=== PATIENT | female | born 1955 | race Two or more races ===

== ENCOUNTER 2025-09-13 18:33 | Emergency (ER) | payer MEDICARE, MEDICAID, SELFPAY ==
[2025-09-13 18:34] VITALS: BMI 35.2
--- NOTE | 2025-09-13 19:04 | EKG_ITS ---
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
[2025-09-13 19:08] VITALS: BP 226/112; BP 238/112; PULSE 74; RESP 20; TEMP 36.8; O2SAT 98
--- NOTE | 2025-09-13 19:09 | XR_ITS ---
Examination: CT brain head without contrast. 2-D sagittal coronal reconstructions Date and time of exam: September 13, 2025, 1928 hours INDICATIONS: Headaches with high blood pressure today CTDI: vol (mGy): 49.3 DLP: (mGycm): 953 Technique: Multiple CT axial sections of the brain have been obtained, 5 mm slice thickness. Contrast has not been administered. 2-D sagittal, coronal reconstructions have been obtained Low dose protocols were performed. One or more of the following dose reduction techniques were used; automated exposure control, adjustment of the mA and/or KV according to patient size, use of iterative reconstruction technique. Findings: No significant ventricular enlargement. Intra-axial or extra-axial hemorrhage density is not seen. No mass effect or midline shift Basal cisterns are not remarkable. Fourth ventricle is midline. Cranial vault intact. Impression: Negative for acute hemorrhage, mass effect or midline shift Mild chronic ethmoid sphenoid sinusitis
--- NOTE | 2025-09-13 19:10 | XR_ITS ---
EXAMINATION: AP chest single view TECHNIQUE: AP portable semiupright chest single view Date and time: September 13, 2025, 191 hours INDICATIONS: Shortness of breath chest pain today. FINDINGS: Mild prominence left ventricle No pneumonia or pulmonary edema Moderate osteopenia IMPRESSION: No pneumonia or pulmonary edema
[2025-09-13 19:49] VITALS: BP 211/92; PULSE 74
[2025-09-13] MEDS: hydrALAZINE INJ 20 MG/ML VIAL IVP (19:49)
[2025-09-13 19:56] LABS: Base Excess, Venous 1 (-3-3); O2 Saturation, Venous 67 % (96-97); PCO2, Venous 48 mmHg (36-56); PO2, Venous 35 mmHg (15-58); pH, Venous 7.36 (7.33-7.66)
[2025-09-13 19:59] LABS: Basophils # (Auto) 0.0 Thou/mm3 (0.0-0.2); Basophils % (Auto) 1 % (0-2.5); Eosinophils # (Auto) 0.2 Thou/mm3 (0.0-0.5); Eosinophils % (Auto) 3 % (0-10); Hematocrit 43.6 % (36.0-46.0); Hemoglobin 15.1 g/dL (12.0-16.0); Immature Granulocytes Auto 0.03 Thou/mm3 (0.00-0.00); Lymphocytes # (Auto) 1.6 Thou/mm3 (1.0-4.8); Lymphocytes % (Auto) 23 % (10-50); Mean Corpuscular HGB Conc 34.6 g/dl (31.0-37.0); Mean Corpuscular Hemoglobin 31.3 pg (25.0-35.0); Mean Corpuscular Volume 90 fL (80-100); Monocytes # (Auto) 0.3 Thou/mm3 (0.0-0.8); Monocytes % (Auto) 5 % (0-12); Neutrophils # (Auto) 4.6 Thou/mm3 (1.8-7.7); Neutrophils % (Auto) 68 % (37-80); Nucleated Red Blood Cell # 0.00 Thou/mm3 (0.00-0.00); Nucleated Red Blood Cell % 0 /100 WBC (0); Platelet Count 207 Thou/mm3 (140-440); RDW Standard Deviation 41.7 fL (36.4-46.3); Red Blood Count 4.83 Miln/mm3 (4.00-5.20); White Blood Count 6.7 Thou/mm3 (3.6-11.0)
[2025-09-13 20:01] LABS: Beta Hydroxybutyrate 0.3 mmol/L (<0.6)
[2025-09-13 20:03] LABS: Collection Type, Urine Clean Catch
[2025-09-13 20:17] LABS: Bilirubin,Urine Negative (Negative); Blood,Urine Negative (Negative); Clarity,Urine Clear (Clear/Hazy); Color,Urine Colorless (Lt Yel-Yel); Culture Indicated,Urine Not Indicated; Glucose, Urine Negative (Negative); Ketones,Urine Negative (Negative); Leukocyte Esterase,Urine Negative (Negative); Nitrite,Urine Negative (Negative); PH,Urine 6.5 (5.0-7.0); Protein,Urine Negative (Neg - Trace); RBC,Urine 1 /hpf (0-3); Specific Gravity,Urine 1.008 (1.001-1.035); Squamous Epithelial Cell,Urine 1 /hpf (0-5); Urobilinogen,Urine Negative mg/dL (0.0-1.0); WBC,Urine 2 /hpf (0-5)
[2025-09-13 20:20] LABS: B-Type Natriuretic Peptide 93 pg/mL (0-100)
[2025-09-13 20:42] LABS: Alanine Aminotransferase 17 U/L (10-49); Albumin, Serum 4.4 gm/dL (3.4-4.8); Albumin/Globulin Ratio 1.5 (1.2-2.2); Alkaline Phosphatase 93 U/L (46-116); Anion Gap 10 (7-16); Aspartate Amino Transferase 24 U/L (0-34); BUN/Creatinine Ratio 12 Ratio (12-20); Bilirubin,Direct 0.1 mg/dL (0.0-0.3); Bilirubin,Total 0.5 mg/dL (0.3-1.2); Blood Urea Nitrogen 6 mg/dL (9-23); Calcium 9.0 mg/dL (8.3-10.6); Calcium (Corrected) 9.0 mg/dL (8.5-10.1); Carbon Dioxide 24.6 mMol/L (20.0-31.0); Chloride 108 mMol/L (98-107); Creatinine (Component) 0.5 mg/dL (0.6-1.3); Estimated Creatinine Clearance 101.9 mL/min (>60); Globulin 2.9 gm/dL (2.3-3.5); Glucose 98 mg/dL (74-106); Osmolality,Calculated 282 (275-295); Potassium 3.6 mMol/L (3.4-5.1); Sodium 143 mMol/L (136-145); Thyroid Stimulating Hormone 2.20 uIU/mL (0.55-4.78); Total Protein 7.3 gm/dL (5.7-8.2); Troponin I < 0.020 ng/mL (0.0-0.045); eGFR > 60 See Note
[2025-09-13 20:58] VITALS: BP 160/66; PULSE 81; RESP 22; O2SAT 98
[2025-09-13 21:38] LABS: Magnesium 2.0 mg/dL (1.6-2.6)
[2025-09-13 22:00] VITALS: BP 165/67; PULSE 80; RESP 18; TEMP 36.7; O2SAT 98
[2025-09-13 22:11] VITALS: BP 163/72; PULSE 74
[2025-09-13] MEDS: METOPROLOL TARTRATE 25 MG TABLET PO (22:11)
[2025-09-13 22:30] LABS: Glucose Estimated Average 120 mg/dL (80-131); Hemoglobin A1C 5.8 % Hgb (4.8-6.0)
== END 2025-09-13 22:22 | disposition home or self-care (01) ==
PROVIDERS: Emergency Provider Emergency Medicine; PCP Family Medicine
DX: I10 Essential (primary) hypertension (principal); R06.02 Shortness of breath; R07.9 Chest pain, unspecified; R51.9 Headache, unspecified
CPT/HCPCS: 36415; 70450; 71045; 80053; 81001; 82010; 82248; 82803; 83036; 83735; 83880; 84443; 84484; 85025; 93005; 96374; 99281; J0360; A9270